=== PATIENT | male | born 1965 | race Caucasian/White ===

== ENCOUNTER → 2020-06-15 | Outpatient (CLI) | payer OTHER | LOC: LAB SHORT 07:24 → PLD 07:24 | DX: L30.9 Dermatitis, unspecified (principal) | CPT/HCPCS: 88305; 88313 ==

== ENCOUNTER 2020-07-29 08:23 | Day surgery (SDC) | payer OTHER ==
[~2020-07-29] VITALS: Ht 182.9 cm; Wt 82.1 kg
[~2020-07-29 08:23] MED LIST: ERGO400 PO; IBUP200 PO
== END 2020-07-29 10:42 | disposition home or self-care (01) ==
LOC: ORSCSDS 08:23
PROVIDERS: Internal Medicine Gastroenterology
PROC: 0DBK8ZX Excision of Ascending Colon, Via Natural or Artificial Opening Endoscopic, Diagnostic (ICD-10-PCS; principal; 2020-07-29 09:45)
PROC: 0DBH8ZX Excision of Cecum, Via Natural or Artificial Opening Endoscopic, Diagnostic (ICD-10-PCS; principal; 2020-07-29 09:45)
DX: Z12.11 Encounter for screening for malignant neoplasm of colon (principal); Z80.0 Family history of malignant neoplasm of digestive organs; Z86.010 Personal history of colon polyps; D12.0 Benign neoplasm of cecum; D12.2 Benign neoplasm of ascending colon; K57.30 Diverticulosis of large intestine without perforation or abscess without bleeding; I10 Essential (primary) hypertension
CPT/HCPCS: 88305; J2704; J7120

== ENCOUNTER 2021-01-12 07:43 | Day surgery (SDC) | payer OTHER ==
[~2021-01-12] VITALS: Ht 180.3 cm; Wt 85.5 kg
--- NOTE | 2021-01-12 09:46 | NUR ---
01/12/21 0946 Bridgett Lei INTERSCALENE NERVE BLOCK CONDUCTED IN PRE-OP WITH DR. NAVARRO 0929: TIME OUT & SITE CHECK PERFORMED 0930: PROCEDURE START 0940: PROCEDURE END PT TOLERATED WELL, NO ISSUES OR COMPLICATIONS. PULSE OX ON PT THROUGHOUT PROCEDURE, VSS. 2MG VERSED IVP GIVEN BY DR. NAVARRO PRIOR TO PROCEDURE START.
--- NOTE | 2021-01-12 12:29 | NUR ---
01/12/21 [id number] Lito Saavedra PT TRANSFERED FROM BED TO CHAIR WITH ONE RN ASSISTANCE. PT AWAKE, ALERT,ORIENTED. PT DENIES ANY PAIN OR N/V. VS WNL. POLAR PACK APPLIED. WILL CONTINUE TO MONITOR PT.
== END 2021-01-12 14:00 | disposition home or self-care (01) ==
LOC: ORSCSDS 07:43
PROVIDERS: Orthopaedic Surgery
PROC: 0PBB4ZZ Excision of Left Clavicle, Percutaneous Endoscopic Approach (ICD-10-PCS; principal; 2021-01-12 09:15)
PROC: 0RNK4ZZ Release Left Shoulder Joint, Percutaneous Endoscopic Approach (ICD-10-PCS; principal; 2021-01-12 09:15)
PROC: 0LU24KZ Supplement Left Shoulder Tendon with Nonautologous Tissue Substitute, Percutaneous Endoscopic Approach (ICD-10-PCS; principal; 2021-01-12 09:15)
PROC: 0LQ24ZZ Repair Left Shoulder Tendon, Percutaneous Endoscopic Approach (ICD-10-PCS; principal; 2021-01-12 09:15)
PROC: 0LS44ZZ Reposition Left Upper Arm Tendon, Percutaneous Endoscopic Approach (ICD-10-PCS; principal; 2021-01-12 09:15)
DX: M75.112 Incomplete rotator cuff tear or rupture of left shoulder, not specified as traumatic (principal); S43.102A Unspecified dislocation of left acromioclavicular joint, initial encounter; M19.012 Primary osteoarthritis, left shoulder; M75.42 Impingement syndrome of left shoulder; M75.22 Bicipital tendinitis, left shoulder; I10 Essential (primary) hypertension; K21.9 Gastro-esophageal reflux disease without esophagitis
CPT/HCPCS: A9270; C1713; C1762; J0171; J0690; J1100; J1885; J2250; J2405; J2704; J2795; J3010; J7120

== ENCOUNTER → 2022-01-12 | Outpatient (CLI) | payer BC ==
[2022-01-13 10:18] LABS: Adenovirus F 40/41 Not Detected (NOT DETECT); Astrovirus Not Detected (NOT DETECT); Campylobacter Sp Not Detected (NOT DETECT); Cryptosporidium Not Detected (NOT DETECT); Cyclospora Cayetanensis Not Detected (NOT DETECT); E. Coli O157 Not Detected (NOT DETECT); Entamoeba Histolytica Not Detected (NOT DETECT); Enteroaggregative E. coli-EAEC Not Detected (NOT DETECT); Enteropathogenic E. coli-EPEC Not Detected (NOT DETECT); Enterotoxigenic E. coli-ETEC Not Detected (NOT DETECT); Giardia Lamblia Not Detected (NOT DETECT); Norovirus GI/GII Not Detected (NOT DETECT); Plesiomonas Shigelloides Not Detected (NOT DETECT); Rotavirus A Not Detected (NOT DETECT); Salmonella Sp Not Detected (NOT DETECT); Shiga Toxin-prod E. coli-STEC Not Detected (NOT DETECT); Shigella/Enteroin E. coli-EIEC Not Detected (NOT DETECT); Vibrio Cholerae Not Detected (NOT DETECT); Vibrio Sp Not Detected (NOT DETECT); Yersinia Enterocolitica Not Detected (NOT DETECT)
[2022-01-13 10:19] LABS: Sapovirus Not Detected (NOT DETECT)
== END | disposition home or self-care (01) ==
LOC: LAB SHORT 19:32
PROVIDERS: Family Medicine
DX: R19.5 Other fecal abnormalities (principal)
CPT/HCPCS: 0097U

== ENCOUNTER 2022-04-20 05:50 | Day surgery (SDC) | payer BC ==
[~2022-04-20] VITALS: Ht 182.9 cm; Wt 88.5 kg
[~2022-04-20 05:50] MED LIST changes: +Prinivil10 MG PO
--- NOTE | 2022-04-20 06:58 | NUR ---
Ambulatory in Day Surgery History, Chart, Medications and Allergies reviewed before start of procedure.Pre-Op teaching done. Pt verbalizes understanding. Patient States Post-Procedure ride home has been arranged WITH .
--- NOTE | 2022-04-20 09:55 | NUR ---
Patient up to Ambulate independently. Gait steady. Discharge instructions reviewed with patient. Patient verbalizes understanding. Copy given to patient to take home. Patient States Post-Procedure ride home has been arranged. Discharged via wheelchair to private car for ride home.
== END 2022-04-20 23:26 | disposition home or self-care (01) ==
LOC: ORSCMMR 05:50 → ORD 07:30 → ORSCMMR 23:26
PROVIDERS: Surgery
PROC: 0WUF0JZ Supplement Abdominal Wall with Synthetic Substitute, Open Approach (ICD-10-PCS; principal; 2022-04-20 07:30)
DX: K42.0 Umbilical hernia with obstruction, without gangrene (principal); I10 Essential (primary) hypertension; E78.5 Hyperlipidemia, unspecified; N40.0 Benign prostatic hyperplasia without lower urinary tract symptoms
CPT/HCPCS: A9270; C1781; J0690; J1100; J1885; J2250; J2405; J2704; J2795; J3010; J7120